=== PATIENT | female | born 2000 | race Hispanic/Latino ===

== ENCOUNTER 2020-03-13 10:07 | Inpatient (IN) | payer MEDICAID, OTHER ==
[2020-03-13] MEDS ORDERED: hydrALAZINE 20 MG/ML VIAL SLOW IVP PRN ×2 (10:40→11:40)
--- NOTE | 2020-03-13 10:45 | PDOC.FPROB ---
FMR OB H&P: HPI - History of Present Illness Chief Complaint: Contractions Indentification: 19 year old at 40.2 wks by LMP/11.0 wk sono History of Present Illness: 19 year old at 40.2 wks by LMP/11.0 wk sono presents with contractions q5 minutes for the last hour. Patient has had sex within the last 24 hours. She states in clinic last week she was 2 cm dilated. Patient denies N/V, vaginal bleeding, vaginal discharge, LoF. Endorses good movement. Primary Care Physician: Teofilo MCMAHON FMR OB H&P: Current - Care : 1 Para: 0 Gestational age: 40.2 wks Due date: 03/11/2020 Dating Criteria: LMP/11.0 wk sono - OB Labs Blood type: O RH: positive Antibody Screen: negative HIV: negative RPR: negative HepBsAg: negative Rubella: immune Gonorrhea: negative Chlamydia: negative GBS: negative FMR OB H&P: History - Past Medical History PMH: Denies - OB History OB History: G1 - EDITORIAL INTERN History EDITORIAL INTERN History: Denies history of STD's - Surgical History Sx History: Denies - Social History Social History: Denies alcohol, tobacco, or drug use FMR OB H&P: Medications - Current Home Medications: Medication Instructions Recorded Confirmed Type Pnv No.121/Iron/Folic Acid 03/13/20 History [ Multivitamin Tablet] Allergies/Adverse Reactions: Allergies Allergy/AdvReac Type Severity Reaction Status Date / Time No Known Allergies Allergy Verified 03/13/20 10:44 FMR OB H&P: ROS - Review of Systems General: denies: fever/chills, weight/appetite/sleep changes Eyes: denies: vision changes, scotomas ENT: denies: nasal congestion, rhinorrhea, sore throat Cardiovascular: denies: chest pain, palpitation, edema Respiratory: denies: cough, congestion, shortness of breath Gastrointestinal: denies: abdominal pain, nausea, vomiting Genitourinary (Female): reports: contractions. denies: dysuria, vaginal discharge, vaginal bleeding Musculoskeletal: denies: pain, stiffness Neurologic: denies: numbness, seizures Integumentary: denies: itching, rash, lesions Psychological: denies: depression, anxiety FMR OB H&P: Vital Signs - Maternal Vital signs: BP 113/58 Pulse 79 Afebrile - Heart Tones Baseline: 130 Variability: moderate Acceleration: present Deceleration: absent Category: category 1 [place] contractions every: q6 min FMR OB H&P: Physical Exam - Physical Exam General: NAD, awake, alert and oriented HEENT: MMM, grossly normal vision, grossly normal hearing Heart: RRR, pulses present General: no respiratory distress, no wheezing Abdomen: soft, gravid, non-tender Musculoskeletal: pulses present, FROM in all four extremities Neurological: no tremor, no focal deficit Skin: no rash, capillary refill <2 seconds Lymphatic: no unusual bruising or bleeding, no purpura Psychiatric: intact recent and remote memory, good judgement and insight, normal mood and affect - Pelvic Exam SVE: /-2 Presentation: Cephalic FMR OB H&P: A/P - Problem List (1) Term Current Visit: Yes Status: Acute Code(s): Z34.90 - ENCNTR FOR SUPRVSN OF NORMAL , UNSP, UNSP TRIMESTER Disposition: 19 year old at 40.2 wks by LMP/11.0 wk sono Term , in latent labor - G1 - SVE /-2, exam one week ago 1 cm dilated - Contractions q8 minutes - Cat I strip Dispo: Labor rule out. Will monitor for 1-2 hours and check to see if patient has made any cervical change. GBS negative per patient. Will call [facility] for official results. If patient does not appear to be progressing to active labor, will plan for d/c home with strict return precautions. Discussion: Date/Time: 03/13/20 1042 This H&P was discussed with Dr. Calvo who agrees with the above documentation and plan. Signature: Leena Willis, PGY-3
[2020-03-13 10:48] VITALS: BMI 28.9
[2020-03-13] MEDS ORDERED: Ondansetron PF 4 MG/2 ML Vial IVP PRN ×2 (11:40→15:05)
[2020-03-13] MEDS ORDERED: Promethazine HCl 25 MG/ML VIAL IM PRN ×2 (11:40→15:05)
[2020-03-13] MEDS ORDERED: Lidocaine 1% (PF) 30 ML VIAL SC PRN (11:40)
[2020-03-13] MEDS ORDERED: Ibuprofen 800 MG TAB PO PRN (11:40)
[2020-03-13] MEDS ORDERED: Acetaminophen 500 MG TAB PO PRN (11:40)
[2020-03-13] MEDS ORDERED: Butorphanol Tartrate 1 MG/ML VIAL SLOW IVP PRN (11:40)
--- NOTE | 2020-03-13 11:50 | PDOC.EVN ---
Event Note - Event Note Event Note: OBGYN Faculty: Patient seen by me at bedside. [facility] patient with Dr Red. 40 weeks active cervical change now 4cm. [facility] reviewed with the patient and negative. No issues per patient. Admit for labor, pitocin if needed
--- NOTE | 2020-03-13 11:51 | PDOC.BPN ---
- Brief Progress Note SVE changed from /-2 to /-2. Will admit patient for labor. Called [facility] to confirm GBS status. GBS negative. Results being faxed. Leena Willis, DO PGY-3
[2020-03-13] MEDS: Lactated Ringer's 1,000 ML IV SCH ×3 (12:09→20:20)
[2020-03-13 13:02] LABS: Hemoglobin 13.5 g/dL (12.0-16.0); Mean Corpuscular HGB CONC 33.8 g/dL (32.0-36.0); Mean Corpuscular Hemoglobin 33.6 pg (25.0-35.0); Mean Corpuscular Volume 99.6 fL (78.0-98.0); Mean Platelet Volume 8.4 fL (7.4-10.4); Platelet Count 217 thou/uL (130-400); RBC Distribution Width 11.7 % (11.5-14.5); Red Blood Cell (RBC) Count 4.03 mill/uL (4.00-5.20); White Blood Cell (WBC) Count 9.8 thou/uL (4.8-10.8)
[2020-03-13 13:45] LABS: HBSAg Index 0.17 S/CO (0-0.99); Hep B Surf Ag Non-Reactive S/CO (NonReactive)
[2020-03-13 13:46] LABS: Syphilis Antibody Nonreactive (Nonreactive); Syphilis Antibody Index 0.06 S/CO (<1.00 Non-Reactive)
--- NOTE | 2020-03-13 13:53 | PDOC.LDPN ---
Labor & Delivery Progress Note - Subjective Subjective: comfortable, painful contractions, no concerns - Objective Vital signs reviewed and normal: yes General: NAD, resting Uterine fundus: non tender SVE: /-2 FHT: category 1, variability present [place] contractions every: intermittent AROM: clear fluid - Assessment (1) Term Code(s): Z34.90 - ENCNTR FOR SUPRVSN OF NORMAL , UNSP, UNSP TRIMESTER Current Visit: Yes Status: Acute Plan: continue plan of care, pitocin for augmentation, other (I have seen the patient at bedside.) -: 19 year old at 40.2 wks by LMP/11.0 wk sono #Term , in latent labor - G1 @ 40.2wk - SVE / @ 1345, unchanged from previous check - AROM, fluid fluid, head well-engaged - Cat 1 strip - Will monitor contractions, 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 - GBS negative PCP: LISANDRO Red This H&P was discussed with Dr. Calvo who agrees with the above documentation and plan.
[2020-03-13] MEDS: Fentanyl 4 mcg/Bupivacaine 0.1% Cassette 100 ML EPIDURAL SCH ×2 (15:00→22:06)
[2020-03-13] MEDS ORDERED: EPHEDRINE 25 MG/5 ML SYRINGE SLOW IVP PRN (15:05)
[2020-03-13] MEDS ORDERED: diphenhydrAMINE 50 MG/ML VIAL IVP PRN (15:05)
[2020-03-13] MEDS ORDERED: Lactated Ringer's 500 ML IV PRN (15:05)
[2020-03-13] MEDS ORDERED: Naloxone HCl 0.4 mg/ml Vial IVP PRN ×2 (15:05)
[2020-03-13] MEDS ORDERED: Communication Order-Pharmacy FS SCH (15:15)
[2020-03-13] MEDS ORDERED: NS w/ Oxytocin 10 units 500 ML ONE (16:22)
[2020-03-13] MEDS ORDERED: NS w/ Oxytocin 10 units 500 ML IV SCH (16:30)
--- NOTE | 2020-03-13 16:32 | PDOC.LDPN ---
Labor & Delivery Progress Note - Subjective Subjective: comfortable, no concerns - Objective Vital signs reviewed and normal: yes General: NAD, resting SVE: /-2 FHT: category 1 (accels, no deccels, baseline 140, moderate variability), variability present [place] contractions every: q5-6min - Assessment (1) Term Code(s): Z34.90 - ENCNTR FOR SUPRVSN OF NORMAL , UNSP, UNSP TRIMESTER Current Visit: Yes Status: Acute Plan: continue plan of care, pitocin for augmentation -: 19 year old at 40.2 wks by LMP/11.0 wk sono #Term , in latent labor - G1 @ 40.2wk - SVE /-2 @ 1345, unchanged from previous check - AROM - SVE 2 @ 1615 - Cat 1 strip - epidural placed - start on pit and titrate to contractions, consider IUPC at nexk check - Recheck in 2 hours. - GBS negative PCP: LISANDRO Red This H&P was discussed with Dr. Calvo who agrees with the above documentation and plan.
--- NOTE | 2020-03-13 18:19 | PDOC.LDPN ---
Labor & Delivery Progress Note - Subjective Subjective: comfortable, vaginal pressure - Objective Vital signs reviewed and normal: yes General: NAD, resting Uterine fundus: non tender SVE: 6.5/100/-1 Dilation: 6.5 Effacement: 100% Station: -1 FHT: category 1 [place] contractions every: 2-3 minutes - Assessment (1) Term Code(s): Z34.90 - ENCNTR FOR SUPRVSN OF NORMAL , UNSP, UNSP TRIMESTER Current Visit: Yes Status: Acute Plan: continue plan of care, labor augmentation, pitocin for augmentation -: 19 year old at 40.2 wks by LMP/11.0 wk sono 1. Term , in latent labor G1 @ 40.2wk * SVE * /-2 @ 1345, unchanged from previous check - AROM * /-2 @ 1615 * 6.5/100/-1 @ 1810 * Cat 1 strip * Epidural placed * Pitocin running * Holding IUPC for now, because she is making change * GBS negative PCP: LISANDRO Red Dispo: Will recheck in 2 hours.
--- NOTE | 2020-03-13 20:52 | PDOC.LDPN ---
Labor & Delivery Progress Note - Subjective Subjective: comfortable - Objective Vital signs reviewed and normal: yes General: NAD, resting SVE: 8/100/0 Dilation: 8 Effacement: 100% Station: 0 FHT: category 1 [place] contractions every: 2-3 minutes - Assessment (1) Term Code(s): Z34.90 - ENCNTR FOR SUPRVSN OF NORMAL , UNSP, UNSP TRIMESTER Current Visit: Yes Status: Acute Plan: continue plan of care, labor augmentation, pitocin for augmentation -: 19 year old at 40.2 wks by LMP/11.0 wk sono 1. Term , in latent labor G1 @ 40.2wk * SVE * 4//-2 @ 1345, unchanged from previous check - AROM * 5/-2 @ 1615 * 6.5/100/-1 @ 1810 * 8/100/0 @ 2045 * Cat 1 strip * Epidural placed * Pitocin running * Holding IUPC for now, because she is making change * GBS negative PCP: LISANDRO Red Dispo: Will recheck in 2 hours or soon. Will keep a close eye on patient.
[2020-03-13] MEDS ORDERED: Fentanyl 4 mcg/Bup 0.1% Cadd 100 ML ONE (21:59)
--- NOTE | 2020-03-13 22:23 | PDOC.LDPN ---
Labor & Delivery Progress Note - Subjective Subjective: comfortable - Objective Vital signs reviewed and normal: yes - Assessment (1) Term Code(s): Z34.90 - ENCNTR FOR SUPRVSN OF NORMAL , UNSP, UNSP TRIMESTER Current Visit: Yes Status: Acute -: 19 year old at 40.2 wks by LMP/11.0 wk sono 1. Term , labor * SVE * /-2 @ 1345, unchanged from previous check - AROM * /-2 @ 1615 * 6.5/100/-1 @ 1810 * 8/100/0 @ 2045 * 8.5/100/0 @ 1015 * Cat 1 strip, cxns q3 * Epidural placed * Pitocin increased to 12 * GBS negative Expectant mgmt
[2020-03-14] MEDS: NS / Oxytocin 40 units/1000ml 1,000 ML IV PRN ×2 (01:24→02:44)
--- NOTE | 2020-03-14 01:32 | PDOC.EVN ---
Event Note - Event Note Event Note: Delivery Faculty note (OutLet Vacuum) I was present for controlled outlet vacuum by Dr Red Station at application: +5 Indication: maternal exhaustion No pop off One attempt= successful Delivery at 0122 Placenta montano at 0124 Vigorous . QBL just after delivery: 800ml from brief uterine atony RX by I/O cath and IV pit/uterine massage 2nd degree lac RX by Teofilo Brown present for delivery
[2020-03-14] MEDS ORDERED: Misoprostol 200 MCG TAB ONE (01:38)
--- NOTE | 2020-03-14 01:54 | PDOC.OPDEL ---
OB Operative/Delivery Note - Additional Findings/Plan Compilations/Other Findings: Vaginal Delivery Procedure note Delivering Physician: Humza Roberts Attending: Dr. Calvo Procedure: Vacuum Assisted Vaginal delivery Anesthesia: epidural, Local for Repair QBL: 1016 ml Pre-op Diagnosis: 1. Term intrauterine in labor Post-op Diagnosis: 1. Term intrauterine , delivered 2. Post- Hemorrhage Indications: A 19y/o female presented in active labor Delivery Note: This is 19yo F G1 now P1 @ 40.3 wks who delivered a viable M infant at 0122. Following an uneventful antepartum course, a vigorous male was delivered over an intact perineum in the occipitoanterior position. For maternal comfort the vacuum was placed at (+3) station, TRISTON position after bladder emptied and anesthesia found to be adequate. was delivered within one pulls without complication. The infants head was examined and no bruising noted .Anterior Shoulder and then remainder of the body delivered. No nuchal cord. The head was held down and mouth and nares were bulb suctioned. Cord clamped and cut and cord blood collected. Placenta delivered intact in the [place] with a 3 vessel cord noted. Fundal massage was performed and the fundus was firm. The cervix and vagina were inspected and found to have hemostatic left periurethral tear as well as 2nd degree perineal laceration. The 2nd degree tear 2-0 chromic in the usual fashion with good approximation and hemostasis after a local anesthetic 1% lidocaine was injected at site. Infant went to nursery in good condition for routine care. Apgars were 8/9 at 1 & 5 minutes, respectively. Patient tolerated delivery well and went to after routine recovery/care. Pitocin and cytotec were administered, uterus was found to be firm following completion of repair.
[2020-03-14] MEDS ORDERED: Misoprostol 200 MCG TAB PR SCH (02:00)
[2020-03-14] MEDS ORDERED: Milk Of Magnesia 30 ML UDCUP PO PRN (03:39)
[2020-03-14] MEDS ORDERED: hydrALAZINE 20 MG/ML VIAL SLOW IVP PRN (03:39)
[2020-03-14] MEDS ORDERED: Benzocaine-Menthol 82.5 ML CAN TOP PRN (03:39)
[2020-03-14] MEDS ORDERED: Lanolin Ointment 7 GM TUBE TOP PRN (03:39)
[2020-03-14] MEDS ORDERED: Bisacodyl 10 MG SUPP PR PRN (03:39)
[2020-03-14] MEDS ORDERED: NS / Oxytocin 40 units/1000ml 1,000 ML IV SCH (03:39)
[2020-03-14] MEDS ORDERED: Ondansetron PF 4 MG/2 ML Vial IVP PRN (03:39)
[2020-03-14] MEDS: Ibuprofen 800 MG TAB PO SCH ×3 (05:42→21:23)
--- NOTE | 2020-03-14 06:01 | PDOC.PP ---
Post Progress Note Post Day #: 1 Subjective: Doing well, no concerns. PO intake tolerated: yes Flatus: yes Ambulation: yes Weight Weight 78.925 kg - Physical Examination General: NAD Cardiovascular: no m/r/g, RRR Respiratory: clear to auscultation bilaterally, non-labored breathing Abdominal: + bowel sounds, lochia, no distention, appropriately TTP Neurological: no gross focal deficits Psychiatric: A&Ox3, normal affect Result Diagrams: 03/13/20 12:49 Additional Labs: Post Labs Blood Type O POSITIVE 03/13/20 14:01 Hep Bs Antigen Non-Reactive S/CO (NonReactive) 03/13/20 12:49 - Assessment/Plan 1. PPD #1 -PNV -Ibuprofen for pain -Encourage ambulation -Encourage breast feeding - Routine PP care. 2. PPH - QBL 1016 - AM H&H Pending. - Will closely monitor vital signs.
[2020-03-14] MEDS: Prenatal Vitamin 1 TAB PO SCH (07:56)
[2020-03-14] MEDS: Docusate Calcium (SURFAK) 240 MG CAP PO SCH ×2 (07:56→21:24)
[2020-03-14] MEDS: Ferrous Sulfate 325 MG TAB PO SCH ×2 (07:57→10:13)
[2020-03-14] MEDS: Acetaminophen 325 MG TAB PO PRN ×2 (07:57→22:43)
[2020-03-14] MEDS ORDERED: Adacel (T-DAP) 0.5 ML SYRINGE IM ONE (09:00)
[2020-03-14 09:59] LABS: Hemoglobin 10.2 g/dL (12.0-16.0); Mean Corpuscular HGB CONC 34.5 g/dL (32.0-36.0); Mean Corpuscular Hemoglobin 33.9 pg (25.0-35.0); Mean Corpuscular Volume 98.3 fL (78.0-98.0); Mean Platelet Volume 8.2 fL (7.4-10.4); Platelet Count 174 thou/uL (130-400); RBC Distribution Width 11.5 % (11.5-14.5); Red Blood Cell (RBC) Count 3.01 mill/uL (4.00-5.20); White Blood Cell (WBC) Count 18.6 thou/uL (4.8-10.8)
[2020-03-15] MEDS: Ibuprofen 800 MG TAB PO SCH ×3 (05:38→22:26)
--- NOTE | 2020-03-15 06:21 | PDOC.PP ---
Post Progress Note Post Day #: 2 Subjective: Feeling well today. Tolerating PO. Some burning w/ urination at perineum. Tried pumping w/ breast pump. Counseled this AM on what to expect w/ . Encouraged patient. PO intake tolerated: yes Flatus: yes Ambulation: yes Vital Signs (12 hours) Temp Pulse Resp BP Pulse Ox 03/15/20 05:37 97.9 F 73 14 108/57 L 99 03/15/20 00:48 97.8 F 75 14 117/86 99 03/14/20 19:19 98.1 F 81 12 115/59 L 99 Weight Weight 78.925 kg - Physical Examination General: NAD Cardiovascular: RRR Respiratory: clear to auscultation bilaterally Abdominal: + bowel sounds, lochia (downtrending), no distention, appropriately TTP Fundus firm & at: 1 finger-width below umbilicus Neurological: no gross focal deficits Psychiatric: A&Ox3, normal affect Result Diagrams: 03/15/20 06:20 Additional Labs: Post Labs Blood Type O POSITIVE 03/13/20 14:01 Hep Bs Antigen Non-Reactive S/CO (NonReactive) 03/13/20 12:49 (1) hemorrhage Code(s): O72.1 - OTHER IMMEDIATE HEMORRHAGE Status: Acute (2) Uterine atony Code(s): O62.2 - OTHER UTERINE INERTIA Status: Acute (3) Vacuum-assisted vaginal delivery Code(s): Z37.9 - OUTCOME OF DELIVERY, UNSPECIFIED Status: Acute - Assessment/Plan 19 yo now P1 at delivered at 40.2 wga: 1. PPD #1, s/p VAVD 2/2 maternal exhaustion - PNV - Ibuprofen for pain - Encourage ambulation - Encourage breast feeding. Educated this AM on colostrum and process. - Routine PP care. - PP contraception plan - OCPs 2. PPH 2/2 uterine atony - QBL 1016 - AM H&H stable. - monitor vital signs. 3. 2nd deg perineal lac repaired - examine incision tomorrow prior to d/c - clean w/ water after urination Dispo: Anticipate d/c no earlier than 03/16.
[2020-03-15 06:43] LABS: Hemoglobin 9.2 g/dL (12.0-16.0)
[2020-03-15] MEDS: Docusate Calcium (SURFAK) 240 MG CAP PO SCH ×2 (09:10→22:26)
[2020-03-15] MEDS: Ferrous Sulfate 325 MG TAB PO SCH ×2 (09:10→17:52)
[2020-03-15] MEDS: Prenatal Vitamin 1 TAB PO SCH (09:10)
[2020-03-16] MEDS: Ibuprofen 800 MG TAB PO SCH (05:27)
--- NOTE | 2020-03-16 06:46 | PDOC.PP ---
Post Progress Note Post Day #: 2 Subjective: Feeling well this AM. Appears tired. Attempted for 10 min on L breast yesterday. Lochia downtrending. Tolerating PO. PO intake tolerated: yes Flatus: yes Ambulation: yes Vital Signs (12 hours) Temp Pulse Resp BP Pulse Ox 03/15/20 19:16 98.7 F 70 20 109/55 L 99 Weight Weight 78.925 kg - Physical Examination General: NAD Cardiovascular: no m/r/g, RRR Respiratory: clear to auscultation bilaterally Abdominal: + bowel sounds, lochia (downtrending), no distention, appropriately TTP Fundus firm & at: 1 fingerwidth below umbilicus Neurological: no gross focal deficits Psychiatric: A&Ox3, normal affect Result Diagrams: 03/15/20 06:20 Additional Labs: Post Labs Blood Type O POSITIVE 03/13/20 14:01 Hep Bs Antigen Non-Reactive S/CO (NonReactive) 03/13/20 12:49 (1) hemorrhage Code(s): O72.1 - OTHER IMMEDIATE HEMORRHAGE Status: Acute (2) Uterine atony Code(s): O62.2 - OTHER UTERINE INERTIA Status: Acute (3) Vacuum-assisted vaginal delivery Code(s): Z37.9 - OUTCOME OF DELIVERY, UNSPECIFIED Status: Acute - Assessment/Plan 19 yo now P1 at delivered at 40.2 wga: 1. PPD #1, s/p VAVD 2/2 maternal exhaustion - PNV - Ibuprofen for pain - Encourage ambulation - Encourage breast feeding. consult, saw patient. - Routine PP care. - PP contraception plan - OCPs 2. PPH 2/2 uterine atony - QBL 1016 - AM H&H at 9.2. Asymptomatic - monitor vital signs. - continue PNV and Iron on discharge 3. 2nd deg perineal lac repaired - clean w/ water after urination Dispo: Anticipate d/c sometime today.
[2020-03-16 08:03] VITALS: BP 113/68; TEMP 98.6
[2020-03-16] MEDS: Docusate Calcium (SURFAK) 240 MG CAP PO SCH (08:42)
[2020-03-16] MEDS: Ferrous Sulfate 325 MG TAB PO SCH (08:42)
[2020-03-16] MEDS: Prenatal Vitamin 1 TAB PO SCH (08:42)
== END 2020-03-16 12:10 | disposition home or self-care (01) | DRG 806 ==
LOC: L&D/OP 10:07 → L&D 11:51 → 3SW 03-14 04:43
PROVIDERS: ADMIT Obstetrics & Gynecology; ATTEND Obstetrics & Gynecology
PROC: 10D07Z6 Extraction of Products of Conception, Vacuum, Via Natural or Artificial Opening (ICD-10-PCS; principal; 2020-03-13)
PROC: 0KQM0ZZ Repair Perineum Muscle, Open Approach (ICD-10-PCS; 2020-03-13)
PROC: 10907ZC Drainage of Amniotic Fluid, Therapeutic from Products of Conception, Via Natural or Artificial Opening (ICD-10-PCS; 2020-03-13)
DX: O48.0 Post-term pregnancy (principal); O72.1 Other immediate postpartum hemorrhage; Z37.0 Single live birth; O70.1 Second degree perineal laceration during delivery; O75.81 Maternal exhaustion complicating labor and delivery; Z3A.40 40 weeks gestation of pregnancy; O71.82 Other specified trauma to perineum and vulva
CPT/HCPCS: 36415; 36416; 51702; 85014; 85018; 85027; 86780; 86850; 86900; 86901; 87340; 99285; J2405; J2590